=== PATIENT | male | born 1995 | race African-American/Black ===

== ENCOUNTER 2022-06-15 21:16 | Emergency (ER) | payer SELFPAY ==
[~2022-06-15] VITALS: Ht 180.3 cm; Wt 68.7 kg
[2022-06-15 21:35] VITALS: BP 119/82
[2022-06-16] MEDS ORDERED: P50 MT (01:04)
[2022-06-16] MEDS ORDERED: FLUT9.9S BOTHNSTRLS (01:04)
[2022-06-16] MEDS ORDERED: CLAR10 MT (01:04)
== END 2022-06-16 01:17 | disposition home or self-care (01) ==
LOC: ER 21:16
DX: J02.9 Acute pharyngitis, unspecified (principal); R09.81 Nasal congestion; J45.909 Unspecified asthma, uncomplicated
CPT/HCPCS: 99281; 99283